=== PATIENT | female | born 1945 | race Caucasian/White ===

== ENCOUNTER → 2016-10-05 | Outpatient (CLI) | payer MEDICARE, OTHER ==
[~2016-10-05] MED LIST: CIPRO 500MG TA500 MG PO; ESTRADIOL1 M1 PO; FLAGYL500 MG PO; LEVOTHYROXIN0.088 MG PO; MONTELUKAST SOD10 MG PO
--- NOTE | 2016-10-08 13:58 | RADIOLOGY REPORT PS360 ---
DIG MAMM-SCREEN [facility]I W/CAD CAD Screening ORDERING PHYSICIAN : Osbaldo Contreras MD PATIENT AGE: 70 years GENDER: Female COMPARISON: Previous mammograms: July INDICATION: Routine screening 70-year-old taking estradiol. No new complaints TECHNIQUE: Standard CC and MLO images were obtained. R2 CAD reviewed. FINDINGS: Stable appearing breast with moderate glandular density retroareolar region slight asymmetry with this density right more than lef . The glandular elements are slightly more accentuated today which may reflect the history of estradiol influenza. A subtle accentuation of glandular elements are seen bilaterally with no focal mass evident.. No new areas of significant concern. Bilateral follow-up in one year adequate IMPRESSION: Mild accentuation of bladder elements bilaterally most evident the right retroareolar region most likely this is due to exogenous hormone effect, estradiol history now noted, Since last year. I would direct or physical exam to this region of believe follow-up in one year the adequate. . No significant new areas of concern ] BI-RADS CATEGORY: BI-RADS 2 RECOMMENDED FOLLOWUP: 12M 12 MONTH FOLLOW-UP (A letter has been sent to the patient regarding results of the study.)
== END ==
LOC: RAD 10:12
DX: Z12.31 Encounter for screening mammogram for malignant neoplasm of breast (principal)
CPT/HCPCS: G0202

== ENCOUNTER → 2016-12-07 | Outpatient (CLI) | payer MEDICARE, OTHER ==
--- NOTE | 2016-12-07 11:34 | RADIOLOGY REPORT PS360 ---
HIP LT 2-3V W/PELVIS IF PERFOR HISTORY: LEFT HIP PAIN ORDERING PHYSICIAN: Vishal Mercado MD PATIENT AGE: 70 years COMPARISON: None FINDINGS: No fracture or dislocation is evident. No significant degenerative change. No lytic or blastic change. Unremarkable soft tissues IMPRESSION: Negative hip
== END ==
LOC: RAD 11:02
DX: M25.552 Pain in left hip (principal)